=== PATIENT | male | born 1950 | race Hispanic/Latino ===

== ENCOUNTER 2023-05-10 08:06 | Outpatient (CLI) | payer MEDICARE, OTHER | END 2023-05-10 08:07 | disposition home or self-care (01) | LOC: CSHCP 08:06 | PROVIDERS: ATTEND Internal Medicine Critical Care Medicine | DX: J44.9 Chronic obstructive pulmonary disease, unspecified (principal) | CPT/HCPCS: 94060; 94726; 94729; 94760 ==

== ENCOUNTER 2023-06-29 08:53 | Outpatient (CLI) | payer MEDICARE, OTHER | END 2023-06-29 08:54 | disposition home or self-care (01) | LOC: CSHMRI 08:53 | PROVIDERS: ATTEND Neurological Surgery | DX: M47.26 Other spondylosis with radiculopathy, lumbar region (principal) | CPT/HCPCS: 72148 ==